=== PATIENT | female | born 1990 | race African-American/Black ===

== ENCOUNTER 2020-06-22 15:52 | Emergency (ER) | payer OTHER ==
[2020-06-22 16:01] VITALS: BMI 47.4
[2020-06-22 18:20] VITALS: BP 149/108; TEMP 98.9
[2020-06-22 18:32] LABS: EPI CELLS >36 /uL (0-25.1); HYALINE CASTS 4 /uL (0-3.1); URINE APPEARANCE TURBID; URINE BACTERIA 5308 /uL (0-1359); URINE BILIRUBIN NEGATIVE (NEGATIVE); URINE COLOR YELLOW; URINE GLUCOSE (UA) TRACE (NEGATIVE); URINE KETONE NEGATIVE (NEGATIVE); URINE LEUK ESTERASE 3+ (NEGATIVE); URINE NITRITE NEGATIVE (NEGATIVE); URINE PROTEIN NEGATIVE (NEGATIVE); URINE RBC 10 /uL (0-23.9); URINE UROBILINOGEN 0.2 mg/dL (0.2-1.0); URINE WBC 866 /uL (0-25.8)
[2020-06-22 18:33] LABS: HCG,QUALITATIVE URINE Negative
[2020-06-22 19:04] VITALS: PULSE 124
[2020-06-22] MEDS ORDERED: amLODIPine BESYLATE 5 MG TABLET (FP) PO ONE (19:12)
[2020-06-22] MEDS ORDERED: amLODIPine BESYLATE 5 MG TABLET (FP) ONE (19:13)
[2020-06-22 21:45] LABS: YEAST MANY (NEGATIVE)
== END 2020-06-22 19:36 | disposition home or self-care (01) ==
LOC: JER 15:52
DX: N30.00 Acute cystitis without hematuria (principal); I10 Essential (primary) hypertension
CPT/HCPCS: 81003; 84703; 93005; 93010; 99284-25